=== PATIENT | male | born 1985 | race Caucasian/White ===

== ENCOUNTER 2022-02-27 04:15 | Day surgery (SDC) | payer BC, OTHER ==
[2022-02-21 16:46] VITALS: BMI 22.8
[2022-02-27] MEDS ORDERED: PROPOFOL 60 ML ONE (07:10)
[2022-02-27] MEDS ORDERED: MIDAZOLAM HCL 2 MG/2 ML SINGLE DOSE VIAL ONE (07:10)
[2022-02-27] MEDS ORDERED: ACETAMINOPHEN INJECTION 100 ML IVPB ONE (07:14)
[2022-02-27] MEDS ORDERED: DEXAMETHASONE SOD PHOSPHATE 10 MG/1 ML VIAL ONE (07:15)
[2022-02-27] MEDS ORDERED: BUPIVACAINE HCL/PF 0.5% (5MG/ML) 10 ML VIAL ONE ×2 (07:15→07:26)
[2022-02-27] MEDS ORDERED: LIDOCAINE HCL 1%, 10 MG/ML (20ML VIAL) ONE (07:26)
[2022-02-27] MEDS ORDERED: ONDANSETRON 4 MG/2 ML VIAL IVPUSH PRN (07:38)
[2022-02-27] MEDS ORDERED: ACETAMINOPHEN 325 MG TABLET (FP) PO PRN (07:38)
[2022-02-27] MEDS ORDERED: oxyCODONE HCL 5 MG TABLET PO PRN (07:38)
[2022-02-27] MEDS ORDERED: LACTATED RINGERS SOLUTION 1,000 ML IV SCH (07:45)
[2022-02-27] MEDS ORDERED: ceFAZolin SODIUM 1 GM VIAL ONE ×2 (08:19)
[2022-02-27] MEDS ORDERED: KETOROLAC TROMETHAMINE 30 MG/1 ML VIAL ONE (08:22)
[2022-02-27] MEDS ORDERED: ceFAZolin SODIUM 1 GM VIAL IVPB ONE (08:22)
[2022-02-27] MEDS ORDERED: DEXAMETHASONE SOD PHOSPHATE 4 MG/1 ML VIAL ONE (08:22)
[2022-02-27 11:15] VITALS: RESP 20
[2022-02-27 12:14] VITALS: BP 117/60; PULSE 68; TEMP 98
== END 2022-02-27 12:30 | disposition home or self-care (01) ==
LOC: JASU-SURG 04:15
PROVIDERS: ATTEND Orthopaedic Surgery
PROC: 0XQH0ZZ Repair Left Wrist Region, Open Approach (ICD-10-PCS; principal; 2022-02-27 08:00)
DX: S63.8X2A Sprain of other part of left wrist and hand, initial encounter (principal); X58.XXXA Exposure to other specified factors, initial encounter; Y93.9 Activity, unspecified; Y92.9 Unspecified place or not applicable; Y99.9 Unspecified external cause status; M24.232 Disorder of ligament, left wrist
CPT/HCPCS: 76000-TC-FY; 94760; J1100